=== PATIENT | male | born 1975 | race African-American/Black ===

== ENCOUNTER 2025-01-12 17:29 | Inpatient (IN) | payer SELFPAY ==
[~2025-01-12] VITALS: Ht 172.7 cm; Wt 53.6 kg
[2025-01-12 17:32] VITALS: O2SAT 99
[2025-01-12] MEDS: LORAZEPAM 2MG/ML UD SYRINGE IV SCH ×2 (19:30→19:38)
[2025-01-12] MEDS ORDERED: LORAZEPAM 2MG/ML INJ IV ONE ×2 (19:30)
[2025-01-12] MEDS: CHLORDIAZEPOXIDE 25MG CAPSULE PO ONE (20:20)
[2025-01-12 20:44] LABS: DIFFERENTIAL COMMENT 1; HEMATOCRIT. 33.4 % (42.0-52.0); MEAN CORPUSCULAR HEMOGLOBIN 33.3 pg (28.0-32.0); MEAN CORPUSCULAR HGB CONC 32.9 g/dL (31.0-37.0); MEAN CORPUSCULAR VOLUME 101.1 fL (80.0-94.0); MEAN PLATELET VOLUME 6.4 fl (7.4-10.4); PLATELET 156 x1000/uL (130-400); RED BLOOD CELL COUNT 3.31 mill/uL (4.7-6.1); RED CELL DISTRIBUTION WIDTH 15.9 % (11.6-14.6); WHITE BLOOD COUNT 8.5 x1000/uL (4.5-11.0)
[2025-01-12 20:58] LABS: PLATELET ESTIMATE NORMAL
[2025-01-12 21:00] LABS: CHLORIDE 104 mEq/L (98-107); POTASSIUM 4.1 mEq/L (3.5-5.1); SODIUM 140 mEq/L (136-145)
[2025-01-12 21:01] LABS: CARBON DIOXIDE 24 mEq/L (21-32)
[2025-01-12 21:06] LABS: CREATININE 0.6 mg/dL (0.6-1.3); GLUCOSE 112 mg/dL (70-105); UREA NITROGEN BLOOD 6 mg/dL (9-23)
[2025-01-12 21:07] LABS: ETHANOL BLOOD < 10 mg/dL (<10)
[2025-01-12] MEDS ORDERED: IPRATROPIUM/ALBUTEROL 0.5-3(2.5)MG/3ML NEB HHN PRN (23:45)
[2025-01-12] MEDS ORDERED: ACETAMINOPHEN 325MG TABLET PO PRN ×2 (23:45)
[2025-01-12] MEDS ORDERED: LORAZEPAM 1MG TABLET PO PRN (23:45)
[2025-01-12] MEDS ORDERED: CHLORDIAZEPOXIDE 25MG CAPSULE PO PRN (23:45)
[2025-01-13] VITALS (8 sets, daily range): BP systolic 115–155; BP diastolic 64–96; PULSE 56–64; RESP 15–20; TEMP 36.4–36.7; O2SAT 96–99
[2025-01-13] MEDS ORDERED: DEXTROSE 50% WATER 50ML SYRINGE IV PRN (02:00)
[2025-01-13] MEDS ORDERED: SODIUM CHLORIDE 0.9% 1,000 ML IV SCH (02:00)
[2025-01-13] MEDS ORDERED: LORAZEPAM 2MG/ML UD SYRINGE IV PRN (02:00)
[2025-01-13] MEDS: THIAMINE HCL 100MG TABLET PO SCH (03:00)
[2025-01-13] MEDS: MULTIVITAMINS,THER W-MINERALS TABLET PO SCH (03:01)
[2025-01-13] MEDS: FOLIC ACID 1MG TABLET PO SCH (03:01)
[2025-01-13] MEDS: FOLIC ACID 1 MG, THIAMINE HCL 100 MG, MVI, ADULT NO.1 10 ML in DEXTROSE 5% WATER 1,000 ML IV NR (03:01)
[2025-01-13 07:18] LABS: CLARITY URINE CLEAR (CLEAR); COLOR URINE YELLOW (YELLOW); GLUCOSE URINE NEGATIVE (NEGATIVE); KETONES URINE 1+ (NEGATIVE); LEUKOCYTE ESTERASE URINE NEGATIVE (NEGATIVE); NITRITE URINE NEGATIVE (NEGATIVE); OCCULT BLOOD URINE NEGATIVE (NEGATIVE); PROTEIN URINE 1+ (NEGATIVE); SPECIFIC GRAVITY URINE 1.018 (1.005-1.030)
[2025-01-13] MEDS: BLOOD SUGAR DIAGNOSTIC STRIP TEST SCH (07:30)
[2025-01-13 07:32] LABS: *AMPHETAMINES SCREEN URINE NEGATIVE (NEGATIVE); *BARBITURATES SCREEN URINE NEGATIVE (NEGATIVE); *BENZODIAZEPINES SCREEN URINE PRESUMPTIVE POSITIVE (NEGATIVE); *COCAINE SCREEN URINE NEGATIVE (NEGATIVE); CANNABINOID URINE SCREEN NEGATIVE (NEGATIVE); ECSTASY MDMA SCREEN URINE NEGATIVE (NEGATIVE); METHADONE URINE SCREEN NEGATIVE (NEGATIVE); OPIATES URINE SCREEN NEGATIVE (NEGATIVE); PHENCYCLIDINE URINE SCREEN NEGATIVE (NEGATIVE)
[2025-01-13] MEDS: INSULIN LISPRO 100 UNITS/ML SUBCUT SCH (08:00)
[2025-01-13 08:10] LABS: BACTERIA URINE NONE SEEN; RBC URINE 0-2 /hpf (0-2); SQUAMOUS EPITHELIAL CELL URINE RARE /lpf (RARE/1+); WBC URINE 0-2 /hpf (0-2); YEAST URINE NONE SEEN
[2025-01-13 08:52] LABS: DIFFERENTIAL COMMENT 0; EOSINOPHILS % 0.6 % (0.0-5.0); HEMATOCRIT. 34.4 % (42.0-52.0); HEMOGLOBIN. 11.1 g/dL (14.0-18.0); MEAN CORPUSCULAR HEMOGLOBIN 32.9 pg (28.0-32.0); MEAN CORPUSCULAR HGB CONC 32.4 g/dL (31.0-37.0); MEAN CORPUSCULAR VOLUME 101.5 fL (80.0-94.0); MEAN PLATELET VOLUME 7.2 fl (7.4-10.4); MONOCYTES % 12.3 % (2.0-8.0); NEUTROPHILS % 74.1 % (40.0-76.0); PLATELET 166 x1000/uL (130-400); RED BLOOD CELL COUNT 3.39 mill/uL (4.7-6.1); RED CELL DISTRIBUTION WIDTH 15.1 % (11.6-14.6); WHITE BLOOD COUNT 6.2 x1000/uL (4.5-11.0)
[2025-01-13] MEDS ORDERED: LEVETIRACETAM 500MG in NACL 100ML PREMIX IV SCH (09:00)
[2025-01-13] MEDS: ENOXAPARIN 40MG/0.4ML SYR SUBCUT SCH (09:12)
[2025-01-13] MEDS: LEVETIRACETAM 500MG PREMIX 100 ML IV SCH (09:13)
[2025-01-13] MEDS: PANTOPRAZOLE 40MG DR TABLET PO SCH (09:13)
[2025-01-13 09:15] LABS: CARBON DIOXIDE 26 mEq/L (21-32); CHLORIDE 103 mEq/L (98-107); FOLIC ACID (FOLATE) SERUM > 20.00 ng/mL (>5.38); SODIUM 141 mEq/L (136-145); VITAMIN B12 SERUM 626 pg/mL (211-911)
[2025-01-13 09:16] LABS: CALCIUM 9.6 mg/dL (8.7-10.4)
[2025-01-13 09:20] LABS: CREATININE 0.6 mg/dL (0.6-1.3); GLUCOSE 81 mg/dL (70-105)
[2025-01-13 09:21] LABS: ALANINE AMINOTRANSFERASE 40 IU/L (10-49); TOTAL IRON BINDING CAPACITY 255 ug/dl (250-425); TRIGLYCERIDE 98 mg/dL (0-150); UREA NITROGEN BLOOD 6 mg/dL (9-23)
[2025-01-13 09:22] LABS: ALBUMIN 4.5 g/dL (3.2-4.8); ASPARTATE AMINOTRANSFERASE 97 IU/L (<34); CHOLESTEROL 163 mg/dL (<200); CREATINE KINASE 167 IU/L (46-171); LDL CHOLESTEROL 40 mg/dL (5-100); T4 FREE 1.15 ng/dL (0.89-1.76); THYROID STIMULATING HORMONE 0.96 uIU/mL (0.55-4.78)
[2025-01-13 09:23] LABS: BILIRUBIN DIRECT 0.5 mg/dL (<=3.0); BILIRUBIN TOTAL 1.5 mg/dL (0.1-1.0); HDL CHOLESTEROL 122 mg/dL (>55); PHOSPHORUS 2.2 mg/dL (2.5-4.9); PROTEIN TOTAL 6.9 g/dL (6.0-8.3)
[2025-01-13 09:41] LABS: IRON 253 ug/dL (65-175)
[2025-01-13] MEDS ORDERED: POTASSIUM CHLORIDE 20MEQ TABLET SR PO SCH (10:30)
[2025-01-13] MEDS ORDERED: POTASSIUM PHOSPHATE 10 MMOL in DEXT 5% WATER 246.6667 ML IV ONE (11:00)
[2025-01-15] MEDS ORDERED: THIAMINE HCL 100MG TABLET PO SCH (09:00)
== END 2025-01-13 12:21 | disposition left against medical advice (07) | DRG 53 ==
LOC: ER 18:04 → 5EST 21:20 → EDBEDREQTM 21:27 → EDBEDREQ 21:27 → ENRESERV 21:39
PROVIDERS: ADMIT Internal Medicine; ATTEND Internal Medicine
DX: G40.89 Other seizures (principal); D53.9 Nutritional anemia, unspecified; D75.89 Other specified diseases of blood and blood-forming organs; E87.6 Hypokalemia; E11.9 Type 2 diabetes mellitus without complications; F10.239 Alcohol dependence with withdrawal, unspecified; F17.210 Nicotine dependence, cigarettes, uncomplicated; I25.2 Old myocardial infarction; J44.9 Chronic obstructive pulmonary disease, unspecified; Z79.899 Other long term (current) drug therapy; Y90.0 Blood alcohol level of less than 20 mg/100 ml
CPT/HCPCS: 36415; 71045; 80048; 80061; 80076; 80305; 80320; 81003; 82550; 82607; 82746; 82962; 83036; 83540; 83550; 83735; 84100; 84439; 84443; 85025; 93005; 99291; A4606; J1650; J1953; J2060; J3411; J3490; J7030; J7060; J7070; G0480